=== PATIENT | male | born 1990 | race Caucasian/White ===

== ENCOUNTER 2021-01-06 20:34 | Emergency (ER) | payer OTHER ==
[~2021-01-06] VITALS: Ht 165.1 cm; Wt 56.7 kg
[2021-01-06] MEDS ORDERED: EPIPEN0.3 MG/0.3 IM (22:18)
== END 2021-01-06 22:30 | disposition home or self-care (01) ==
LOC: ER 20:34
DX: T63.441A Toxic effect of venom of bees, accidental (unintentional), initial encounter (principal); M79.89 Other specified soft tissue disorders
CPT/HCPCS: 96372-59; 96374; 96375; 99282-25; J0171; J1200; J2930

== ENCOUNTER 2024-08-31 12:07 | Emergency (ER) | payer OTHER ==
[~2024-08-31] VITALS: Ht 170.2 cm; Wt 59.0 kg
[~2024-08-31 12:07] MED LIST: EPIPEN0.3 MG/0.3 IM
[2024-08-31 12:14] VITALS: BP 165/113
[2024-08-31] MEDS ORDERED: Prednisone20 MG PO (14:08)
== END 2024-08-31 14:28 | disposition home or self-care (01) ==
LOC: ER 12:07
DX: R07.9 Chest pain, unspecified (principal); R06.02 Shortness of breath; F17.290 Nicotine dependence, other tobacco product, uncomplicated; Z59.89 Other problems related to housing and economic circumstances
CPT/HCPCS: 71046; 93005; 93010; 99285-25